=== PATIENT | female | born 1975 | race Caucasian/White ===

== ENCOUNTER 2021-06-03 19:15 | Emergency (ER) | payer SELFPAY ==
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
[2021-06-03 19:27] VITALS: BP 189/108; PULSE 93; RESP 18; TEMP 36.3; O2SAT 100
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
== END 2021-06-03 20:41 | disposition home or self-care (01) ==
PROVIDERS: Emergency Provider Nurse Practitioner
DX: T14.8XXA Other injury of unspecified body region, initial encounter (principal); Y09 Assault by unspecified means; R07.81 Pleurodynia
CPT/HCPCS: 71101; 73030; 99204; G0463